=== PATIENT | male | born 1995 | race Caucasian/White ===

== ENCOUNTER 2018-03-05 17:24 | Emergency (ER) | payer OTHER ==
[2018-03-05] MEDS ORDERED: Ondansetron 4 MG/2 ML SDV IVPUSH ONE (17:30)
[2018-03-05] MEDS ORDERED: Sodium Chloride 0.9% 1,000 ML IV ONE (17:30)
[2018-03-05] MEDS ORDERED: HYDROmorphone 2 MG/ML SDV IVPUSH ONE (17:30)
[2018-03-05] MEDS ORDERED: Sodium Chloride 0.9% 10 ML Syringe FLUSH PRN (17:31)
[2018-03-05] MEDS ORDERED: Sodium Chloride 0.9% 2.5 ML Syringe FLUSH PRN (17:31)
--- NOTE | 2018-03-05 17:31 | EDM.PDOC ---
ED HPI GENERAL MEDICAL PROBLEM - General Chief Complaint: Lower Extremity Injury/Pain Stated Complaint: CRUSHED FOOT AT WORK Time Seen by Provider: 03/05/18 17:31 Source of Information: Reports: Patient History Limitations: Reports: No Limitations - History of Present Illness INITIAL COMMENTS - FREE TEXT/NARRATIVE: HISTORY AND PHYSICAL: []22 -year-old male presenting with crush injury to his left foot History of Present Illness: []Approximately half hour before presenting to the emergency department a 4 point lift for automobile was dropped down landing on his left foot. Review of Systems: As per history of present illness and below otherwise all systems reviewed and negative. Past medical history: As per history of present illness and as reviewed below otherwise noncontributory. Surgical history: As per history of present illness and as reviewed below otherwise noncontributory. Social history: No reported history of drug or alcohol abuse. Family history: As per history of present illness and as reviewed below otherwise noncontributory. Physical exam: Alert and oriented gentleman young man who is in extreme amount of pain in his left foot is quite edematous great toe and second toe HEENT: Atraumatic, normocehpalic, pupils reactive, negative for conjunctival pallor or scleral icterus, mucous membranes moist, throat clear, neck supple, nontender, trachea midline. Lungs: Clear to auscultation, breath sounds equal bilaterally, chest non tender. Heart: S1S2, regular, negative for clicks, rubs, or JVD. Abdomen: Soft, nondistended, nontender. Negative for masses or hepatossplenmegaly. Negative for costovertebral tenderness. Pelvis: Stable nontender. Genitourinary: Deferred. Rectal: Deferred Extremities: Atraumatic, negative for cords or calf pain. Neurovascular unremarkable. Neuro: Awake, alert, oriented. Cranial nerves II through XII unremarkable. Cerebellum unremarkable. Motor and sensory unremarkable throughout. Exam nonfocal. I discussed this case with Dr. Elder at [facility] [place], [place]. He has accepted him for transfer. Dr. Larios is reconciliation clerk for podiatry. Procedure was completed per Dr. Jackson to reduce the subluxation, of his great toe. white grayish color has improved the bluish color has resolved slight pinkness is present. Good pedal pulse is palpable inked marked has been placed. After this procedure with sedation the refill is poor. Diagnostics: []xray foot and toes left Therapeutics: []1 L normal saline 2 mg Dilaudid Zofran Impression: []Fractures dislocation IP joint first digit and multiple proximal phalanx fractures. Plan: []Transfer per ground ambulance to [facility] Definitive disposition and diagnosis as appropriate pending reevaluation and review of above. Onset: Today, Sudden Duration: Minutes: (30) Location: Reports: Lower Extremity, Left Quality: Reports: Stabbing, Throbbing Severity: Severe Improves with: Reports: None Worsens with: Reports: None Associated Symptoms: Reports: No Other Symptoms Left Feet Pain Score (Numeric/FACES): 10 - Related Data Allergies Allergy/AdvReac Type Severity Reaction Status Date / Time No Known Allergies Allergy Verified 03/05/18 17:33 Home Meds: Home Meds . [No Known Home Meds] 03/05/18 [History] Review of Systems - Review of Systems Review Of Systems: ROS reveals no pertinent complaints other than HPI. ED EXAM, GENERAL - Physical Exam Exam: See Below (see dictation) Course - Vital Signs Last Recorded V/S: Last Vital Signs Temp 37.1 C 03/05/18 17:33 Pulse 136 H 03/05/18 17:33 Resp 20 03/05/18 17:33 BP 183/83 H 03/05/18 17:33 Pulse Ox 98 03/05/18 17:33 - Orders/Labs/Meds Orders: Active Orders 24 hr Category Date Time Status Foot Comp Min 3V Lt [CR] Stat Exams 03/05/18 17:27 Taken CPK [CREATINE KINASE,CK] [CHEM] Stat Lab 03/05/18 17:30 Received Sodium Chloride 0.9% [Saline Flush] Med 03/05/18 17:31 Active 10 ml FLUSH ASDIRECTED PRN Sodium Chloride 0.9% [Saline Flush] Med 03/05/18 17:31 Active 2.5 ml FLUSH ASDIRECTED PRN Saline Lock Insert [OM.PC] Stat Oth 03/05/18 17:31 Ordered Medication Orders Sodium Chloride (Saline Flush) 10 ml FLUSH ASDIRECTED PRN PRN Reason: Keep Vein Open Sodium Chloride (Saline Flush) 2.5 ml FLUSH ASDIRECTED PRN PRN Reason: Keep Vein Open Labs: Laboratory Tests 03/05/18 03/05/18 Range/Units 17:30 17:30 WBC 10.73 (4.0-11.0) K/uL RBC 5.77 (4.50-5.90) M/uL Hgb 17.3 H (13.0-17.0) g/dL Hct 50.4 H (38.0-50.0) % MCV 87.3 (80.0-98.0) fL MCH 30.0 (27.0-32.0) pg MCHC 34.3 (31.0-37.0) g/dL RDW Std Deviation 43.0 (28.0-62.0) fl RDW Coeff of Trinity 14 (11.0-15.0) % Plt Count 252 (150-400) K/uL MPV 9.90 (7.40-12.00) fL Neut % (Auto) 67.0 (48.0-80.0) % Lymph % (Auto) 25.0 (16.0-40.0) % [place] % (Auto) 7.1 (0.0-15.0) % Eos % (Auto) 0.5 (0.0-7.0) % Baso % (Auto) 0.4 (0.0-1.5) % Neut # (Auto) 7.2 H (1.4-5.7) K/uL Lymph # (Auto) 2.7 H (0.6-2.4) K/uL [place] # (Auto) 0.8 (0.0-0.8) K/uL Eos # (Auto) 0.1 (0.0-0.7) K/uL Baso # (Auto) 0.0 (0.0-0.1) K/uL Nucleated RBC % 0.0 /100WBC Nucleated RBCs # 0 K/uL Sodium 141 (136-148) mmol/L Potassium 3.5 (3.5-5.1) mmol/L Chloride 102 (98-107) mmol/L Carbon Dioxide 27.2 (21.0-32.0) mmol/L BUN 11 (7.0-18.0) mg/dL Creatinine 1.1 (0.8-1.3) mg/dL Est Cr Clr Drug Dosing 99.32 mL/min Estimated GFR (MDRD) > 60.0 ml/min Glucose 93 (74-106) mg/dL Calcium 10.0 (8.5-10.1) mg/dL Total Bilirubin 0.6 (0.2-1.0) mg/dL AST 33 (15-37) IU/L ALT 35 (14-63) IU/L Alkaline Phosphatase 80 (46-116) U/L Total Protein 8.1 (6.4-8.2) g/dL Albumin 4.6 (3.4-5.0) g/dL Globulin 3.5 (2.0-3.5) g/dL Albumin/Globulin Ratio 1.3 (1.3-2.8) Meds: Medications Generic Name Dose Route Start Last Admin Trade Name Freq PRN Reason Stop Dose Admin Sodium Chloride 10 ml 03/05/18 17:31 Saline Flush FLUSH ASDIRECTED PRN Keep Vein Open Sodium Chloride 2.5 ml 03/05/18 17:31 Saline Flush FLUSH ASDIRECTED PRN Keep Vein Open Discontinued Medications Generic Name Dose Route Start Last Admin Trade Name Freq PRN Reason Stop Dose Admin Fentanyl Confirm 03/05/18 18:36 Sublimaze Administered 03/05/18 18:37 Dose 100 mcg .ROUTE .STK-MED ONE Hydromorphone HCl 2 mg 03/05/18 17:30 03/05/18 17:35 Dilaudid IVPUSH 03/05/18 17:31 2 mg ONETIME ONE Administration Hydromorphone HCl Confirm 03/05/18 17:34 03/05/18 18:04 Dilaudid Administered 03/05/18 17:35 Not Given Dose 2 mg .ROUTE .STK-MED ONE Hydromorphone HCl 1 mg 03/05/18 18:10 03/05/18 18:21 Dilaudid IVPUSH 03/05/18 18:11 1 mg ONETIME ONE Administration Sodium Chloride 1,000 mls @ 999 mls/hr 03/05/18 17:30 03/05/18 17:41 Normal Saline IV 03/05/18 18:30 999 mls/hr STAT ONE Administration Lidocaine HCl Confirm 03/05/18 18:36 Xylocaine-Mpf 1% Administered 03/05/18 18:37 Dose 5 mls @ as directed .ROUTE .STK-MED ONE Midazolam HCl Confirm 03/05/18 18:35 Versed 1 Mg/Ml Administered 03/05/18 18:36 Dose 2 mg .ROUTE .STK-MED ONE Ondansetron HCl 4 mg 03/05/18 17:30 03/05/18 17:35 Zofran IVPUSH 03/05/18 17:31 4 mg ONETIME ONE Administration Ondansetron HCl Confirm 03/05/18 17:34 03/05/18 18:04 Zofran Administered 03/05/18 17:35 Not Given Dose 4 mg .ROUTE .STK-MED ONE Propofol Confirm 03/05/18 18:36 Diprivan 20 Ml Administered 03/05/18 18:37 Dose 200 mg .ROUTE .STK-MED ONE Departure - Departure Time of Disposition: 18:57 Disposition: DC/Tfer to Acute Hospital 02 Condition: Fair Clinical Impression: Closed fracture of phalanx of foot - Discharge Information Referrals: PCP,None [Primary Care Provider] - Forms: ED Department Discharge - My Orders Last 24 Hours: My Active Orders 03/05/18 17:31 Sodium Chloride 0.9% [Saline Flush] 10 ml FLUSH ASDIRECTED PRN Sodium Chloride 0.9% [Saline Flush] 2.5 ml FLUSH ASDIRECTED PRN Saline Lock Insert [OM.PC] Stat - Assessment/Plan Last 24 Hours: My Active Orders 03/05/18 17:31 Sodium Chloride 0.9% [Saline Flush] 10 ml FLUSH ASDIRECTED PRN Sodium Chloride 0.9% [Saline Flush] 2.5 ml FLUSH ASDIRECTED PRN Saline Lock Insert [OM.PC] Stat
[2018-03-05] MEDS ORDERED: Ondansetron 4 MG/2 ML SDV ONE (17:34)
[2018-03-05] MEDS ORDERED: HYDROmorphone 2 MG/ML SDV ONE (17:34)
[2018-03-05] MEDS ORDERED: HYDROmorphone 1 MG/ML Syringe IVPUSH ONE (18:10)
[2018-03-05 18:14] LABS: CHLORIDE,CL 102 mmol/L (98-107); SODIUM,NA 141 mmol/L (136-148)
[2018-03-05] MEDS ORDERED: Midazolam 1 MG/ML 2 ML SDV ONE (18:35)
[2018-03-05] MEDS ORDERED: Propofol 200 MG/20 ML SDV ONE (18:36)
[2018-03-05] MEDS ORDERED: fentaNYL 100 MCG/2 ML SDV ONE (18:36)
--- NOTE | 2018-03-05 19:13 | PCM.PREANE ---
Preanesthetic Assessment - Anesthesia/Transfusion/Family Hx Anesthesia History: Prior Anesthesia Without Reaction Family History of Anesthesia Reaction: No Transfusion History: No Prior Transfusion(s) - Review of Systems General: No Symptoms Pulmonary: No Symptoms Cardiovascular: No Symptoms Gastrointestinal: No Symptoms Neurological: No Symptoms Other: Reports: None - Physical Assessment NPO Status Date: 03/05/18 NPO Status Time: 12:00 O2 Sat by Pulse Oximetry: 98 Respiratory Rate: 20 Vital Signs: Last Vital Signs Temp 98.8 F 03/05/18 17:33 Pulse 136 H 03/05/18 17:33 Resp 20 03/05/18 17:33 BP 183/83 H 03/05/18 17:33 Pulse Ox 98 03/05/18 17:33 Height: 5 ft 7 in Weight: 86.183 kg ASA Class: 2E Mental Status: Alert & Oriented x3 Airway Class: Mallampati = 2 Dentition: Reports: Normal Dentition Thyro-Mental Finger Breadths: 3 Mouth Opening Finger Breadths: 3 ROM/Head Extension: Full Lungs: Clear to Auscultation, Normal Respiratory Effort Cardiovascular: Regular Rate, Regular Rhythm - Lab Values: Laboratory Last Values WBC 10.73 K/uL (4.0-11.0) 03/05/18 17:30 RBC 5.77 M/uL (4.50-5.90) 03/05/18 17:30 Hgb 17.3 g/dL (13.0-17.0) H 03/05/18 17:30 Hct 50.4 % (38.0-50.0) H 03/05/18 17:30 MCV 87.3 fL (80.0-98.0) 03/05/18 17:30 MCH 30.0 pg (27.0-32.0) 03/05/18 17:30 MCHC 34.3 g/dL (31.0-37.0) 03/05/18 17:30 RDW Std Deviation 43.0 fl (28.0-62.0) 03/05/18 17:30 RDW Coeff of Trinity 14 % (11.0-15.0) 03/05/18 17:30 Plt Count 252 K/uL (150-400) 03/05/18 17:30 MPV 9.90 fL (7.40-12.00) 03/05/18 17:30 Neut % (Auto) 67.0 % (48.0-80.0) 03/05/18 17:30 Lymph % (Auto) 25.0 % (16.0-40.0) 03/05/18 17:30 [place] % (Auto) 7.1 % (0.0-15.0) 03/05/18 17:30 Eos % (Auto) 0.5 % (0.0-7.0) 03/05/18 17:30 Baso % (Auto) 0.4 % (0.0-1.5) 03/05/18 17:30 Neut # (Auto) 7.2 K/uL (1.4-5.7) H 03/05/18 17:30 Lymph # (Auto) 2.7 K/uL (0.6-2.4) H 03/05/18 17:30 [place] # (Auto) 0.8 K/uL (0.0-0.8) 03/05/18 17:30 Eos # (Auto) 0.1 K/uL (0.0-0.7) 03/05/18 17:30 Baso # (Auto) 0.0 K/uL (0.0-0.1) 03/05/18 17:30 Nucleated RBC % 0.0 /100WBC 03/05/18 17:30 Nucleated RBCs # 0 K/uL 03/05/18 17:30 Sodium 141 mmol/L (136-148) 03/05/18 17:30 Potassium 3.5 mmol/L (3.5-5.1) 03/05/18 17:30 Chloride 102 mmol/L (98-107) 03/05/18 17:30 Carbon Dioxide 27.2 mmol/L (21.0-32.0) 03/05/18 17:30 BUN 11 mg/dL (7.0-18.0) 03/05/18 17:30 Creatinine 1.1 mg/dL (0.8-1.3) 03/05/18 17:30 Est Cr Clr Drug Dosing 99.32 mL/min 03/05/18 17:30 Estimated GFR (MDRD) > 60.0 ml/min 03/05/18 17:30 Glucose 93 mg/dL (74-106) 03/05/18 17:30 Calcium 10.0 mg/dL (8.5-10.1) 03/05/18 17:30 Total Bilirubin 0.6 mg/dL (0.2-1.0) 03/05/18 17:30 AST 33 IU/L (15-37) 03/05/18 17:30 ALT 35 IU/L (14-63) 03/05/18 17:30 Alkaline Phosphatase 80 U/L (46-116) 03/05/18 17:30 Creatine Kinase 1065 U/L (26-308) H 03/05/18 17:30 Total Protein 8.1 g/dL (6.4-8.2) 03/05/18 17:30 Albumin 4.6 g/dL (3.4-5.0) 03/05/18 17:30 Globulin 3.5 g/dL (2.0-3.5) 03/05/18 17:30 Albumin/Globulin Ratio 1.3 (1.3-2.8) 03/05/18 17:30 - Allergies Allergies/Adverse Reactions: Allergies Allergy/AdvReac Type Severity Reaction Status Date / Time No Known Allergies Allergy Verified 03/05/18 17:33 - Acknowledgements Anesthesia Type Planned: MAC Pt an Appropriate Candidate for the Planned Anesthesia: Yes Alternatives and Risks of Anesthesia Discussed w Pt/Guardian: Yes Pt/Guardian Understands and Agrees with Anesthesia Plan: Yes PreAnesthesia Questionnaire - Past Health History Medical/Surgical History: Denies Medical/Surgical History HEENT History: Reports: None Cardiovascular History: Reports: None Respiratory History: Reports: None Gastrointestinal History: Reports: GERD (occ.) Genitourinary History: Reports: None Musculoskeletal History: Reports: None Neurological History: Reports: None Psychiatric History: Reports: Anxiety Endocrine/Metabolic History: Reports: Obesity/BMI 30+ Hematologic History: Reports: None Immunologic History: Reports: None Oncologic (Cancer) History: Reports: None Dermatologic History: Reports: None - Infectious Disease History Infectious Disease History: Reports: None - SUBSTANCE USE Smoking Status *Q: Never Smoker Recreational Drug Use History: Yes Recreational Drug Type: Reports: Marijuana/Hashish - HOME MEDS Home Medications: Home Meds . [No Known Home Meds] 03/05/18 [History] - CURRENT (IN HOUSE) MEDS Current Meds: Current Medications Sodium Chloride (Saline Flush) 10 ml FLUSH ASDIRECTED PRN PRN Reason: Keep Vein Open Sodium Chloride (Saline Flush) 2.5 ml FLUSH ASDIRECTED PRN PRN Reason: Keep Vein Open Discontinued Medications Fentanyl (Sublimaze) Confirm Administered Dose 100 mcg .ROUTE .STK-MED ONE Stop: 03/05/18 18:37 Hydromorphone HCl (Dilaudid) 2 mg IVPUSH ONETIME ONE Stop: 03/05/18 17:31 Last Admin: 03/05/18 17:35 Dose: 2 mg Hydromorphone HCl (Dilaudid) Confirm Administered Dose 2 mg .ROUTE .STK-MED ONE Stop: 03/05/18 17:35 Last Admin: 03/05/18 18:04 Dose: Not Given Hydromorphone HCl (Dilaudid) 1 mg IVPUSH ONETIME ONE Stop: 03/05/18 18:11 Last Admin: 03/05/18 18:21 Dose: 1 mg Sodium Chloride (Normal Saline) 1,000 mls @ 999 mls/hr IV STAT ONE Stop: 03/05/18 18:30 Last Admin: 03/05/18 17:41 Dose: 999 mls/hr Lidocaine HCl (Xylocaine-Mpf 1%) Confirm Administered Dose 5 mls @ as directed .ROUTE .STK-MED ONE Stop: 03/05/18 18:37 Midazolam HCl (Versed 1 Mg/Ml) Confirm Administered Dose 2 mg .ROUTE .STK-MED ONE Stop: 03/05/18 18:36 Ondansetron HCl (Zofran) 4 mg IVPUSH ONETIME ONE Stop: 03/05/18 17:31 Last Admin: 03/05/18 17:35 Dose: 4 mg Ondansetron HCl (Zofran) Confirm Administered Dose 4 mg .ROUTE .STK-MED ONE Stop: 03/05/18 17:35 Last Admin: 03/05/18 18:04 Dose: Not Given Propofol (Diprivan 20 Ml) Confirm Administered Dose 200 mg .ROUTE .STK-MED ONE Stop: 03/05/18 18:37
--- NOTE | 2018-03-05 19:14 | PCM.POSTAN ---
POST ANESTHESIA ASSESSMENT - MENTAL STATUS Mental Status: Alert, Oriented - RESPIRATORY Respiratory Status: Respiratory Rate WNL, Airway Patent, O2 Saturation Stable - CARDIOVASCULAR CV Status: Pulse Rate WNL, Blood Pressure Stable - GASTROINTESTINAL GI Status: No Symptoms - PAIN Pain Score: 5 - POST OP HYDRATION Hydration Status: Adequate & Stable - OBSERVATIONS Free Text/Narrative:: Patient is alert and oriented. EMS is at the bedside in the ER for transfer to [place].
--- NOTE | 2018-03-05 19:14 | PCM48HPAN ---
Post Anesthesia Note - EVALUATION WITHIN 48HRS OF ANESTHETIC Vital Signs in Normal Range: Yes Patient Participated in Evaluation: Yes Respiratory Function Stable: Yes Airway Patent: Yes Cardiovascular Function Stable: Yes Hydration Status Stable: Yes Pain Control Satisfactory: Yes Nausea and Vomiting Control Satisfactory: Yes Mental Status Recovered: Yes Resp Rate: 20
--- NOTE | 2018-03-06 10:42 | CR ---
EXAM DATE: 03/05/18 PATIENT'S AGE: 22 Patient: NIEVES CUNNINGHAM Facility: [place], [place] Site . Site : [id number] Study: XRay Extremity Left [id number]/12/2018 5:56:34 PM Ordering Physician: Doctor Hsieh Final Report: INDICATION: Crush injury. TECHNIQUE: Three views. FINDINGS: Fracture/dislocation at the IP joint of the 1st digit with distal phalanx appearing to be dislocated in the dorsal direction relative to the proximal phalanx. Subluxation at the 2nd IP joint with tiny avulsion fracture of the proximal phalanx. Transverse fracture at the distal 3rd and 4th proximal phalanges. Associated soft tissue swelling. No definitive forefoot dislocation, but CT of the foot recommended if this is a concern clinically. IMPRESSION: Multiple phalanges fractures with associated soft tissue swelling with subluxations at the 1st and 2nd PIP joints. Dictated by Clark Tran MD @ Mar 05 2018 6:08PM (Electronic Signature) Report Signed by Proxy. JOANA
== END 2018-03-05 19:05 ==
LOC: MW.ED 17:24
DX: S92.422A Displaced fracture of distal phalanx of left great toe, initial encounter for closed fracture (principal); S92.512A Displaced fracture of proximal phalanx of left lesser toe(s), initial encounter for closed fracture; W20.8XXA Other cause of strike by thrown, projected or falling object, initial encounter
CPT/HCPCS: 28495; 28515; 73630; 80053; 82550; 85025; 96361; 96374; 96375; 96376; 99152; 99153; 99285; J1170; J2405; J7040

== ENCOUNTER 2018-03-24 15:10 | Emergency (ER) | payer OTHER ==
[2018-03-24] MEDS ORDERED: Sodium Chloride 0.9% 10 ML Syringe FLUSH PRN (15:43)
[2018-03-24] MEDS ORDERED: Sodium Chloride 0.9% 1,000 ML IV ONE (15:43)
[2018-03-24] MEDS ORDERED: Ondansetron 4 MG/2 ML SDV IVPUSH ONE (15:43)
[2018-03-24] MEDS ORDERED: Ketorolac 30 MG/ML SDV IVPUSH ONE (15:43)
[2018-03-24] MEDS ORDERED: Sodium Chloride 0.9% 2.5 ML Syringe FLUSH PRN (15:43)
--- NOTE | 2018-03-24 15:50 | EDM.PDOC ---
ED HPI GENERAL MEDICAL PROBLEM - General Chief Complaint: Abdominal Pain Stated Complaint: VOMITING Time Seen by Provider: 03/24/18 15:22 Source of Information: Reports: Patient History Limitations: Reports: No Limitations - History of Present Illness INITIAL COMMENTS - FREE TEXT/NARRATIVE: History of present illness: []Patient complains of not feeling well. He hasn't eaten much in the last 5 days and has felt hot and nauseous since last night. Patient suffered a crush injury to his left foot and was hospitalized after surgery [facility] [place]. He has not taken any narcotics or Ativan in the past 3 days. He has been taking ibuprofen and Tylenol Review of systems: As per history of present illness and below otherwise all systems reviewed and negative. Past medical history: As per history of present illness and as reviewed below otherwise noncontributory. Surgical history: As per history of present illness and as reviewed below otherwise noncontributory. Social history: No reported history of drug or alcohol abuse. Family history: As per history of present illness and as reviewed below otherwise noncontributory. Physical exam: General: Well developed, well nourished in NAD HEENT: Atraumatic, normocephalic, pupils reactive, negative for conjunctival pallor or scleral icterus, mucous membranes moist, throat clear, neck supple, nontender, trachea midline. Lungs: Clear to auscultation, breath sounds equal bilaterally, chest nontender. Heart: S1S2, regular, negative for clicks, rubs, or JVD. Abdomen: Soft, nondistended, nontender, no rebound or guarding. Negative for masses or hepatosplenomegaly. Negative for costovertebral tenderness. Pelvis: Stable nontender. Genitourinary: Deferred. Rectal: Deferred. Extremities: Left foot mild swelling, pain in the great toe noted in place, patient is able to move his great toe slightly dorsalis pedis pulses palpable and sensation is intact throughout his foot. negative for cords or calf pain. Neurovascular unremarkable. Neuro: Awake, alert, oriented. Cranial nerves II through XII unremarkable. Cerebellum unremarkable. Motor and sensory unremarkable throughout. Exam nonfocal. Skin:warm and dry Diagnostics: CBC, chemistry all normal Therapeutics: IV hydration, Zofran, Toradol ED Course: Unremarkable Impression: Dehydration Prescriptions: None Plan: Increase fluids Tylenol Motrin for pain follow-up with your orthopedic surgeon, return if symptoms worsen or change Definitive disposition and diagnosis as appropriate pending reevaluation and review of above. Left Upper Abdomen Pain Score (Numeric/FACES): 2 - Related Data Allergies Allergy/AdvReac Type Severity Reaction Status Date / Time No Known Allergies Allergy Verified 03/24/18 15:36 Home Meds: Home Meds . [No Known Home Meds] 03/05/18 [History] Past Medical History - Past Health History Medical/Surgical History: Denies Medical/Surgical History HEENT History: Reports: None Cardiovascular History: Reports: None Respiratory History: Reports: None Gastrointestinal History: Reports: GERD Genitourinary History: Reports: None Musculoskeletal History: Reports: Other (See Below) Neurological History: Reports: None Psychiatric History: Reports: Anxiety Endocrine/Metabolic History: Reports: Obesity/BMI 30+ Hematologic History: Reports: None Immunologic History: Reports: None Oncologic (Cancer) History: Reports: None Dermatologic History: Reports: None - Infectious Disease History Infectious Disease History: Reports: None - Past Surgical History Other Musculoskeletal Surgeries/Procedures:: left foot crush injury surgery in [place] last week by Social & Family History - Family History Family Medical History: Noncontributory - Tobacco Use Smoking Status *Q: Never Smoker Second Hand Smoke Exposure: No - Caffeine Use Caffeine Use: Reports: None - Recreational Drug Use Recreational Drug Use: No ED ROS GENERAL - Review of Systems Review Of Systems: ROS reveals no pertinent complaints other than HPI. ED EXAM, GENERAL - Physical Exam Exam: See Below (See history of present illness) Course - Vital Signs Last Recorded V/S: Last Vital Signs Temp 96.8 F 03/24/18 15:34 Pulse Resp 20 03/24/18 15:34 BP 139/77 03/24/18 15:34 Pulse Ox 99 03/24/18 15:34 - Orders/Labs/Meds Orders: Active Orders 24 hr Category Date Time Status Sodium Chloride 0.9% [Saline Flush] Med 03/24/18 15:43 Active 10 ml FLUSH ASDIRECTED PRN Sodium Chloride 0.9% [Saline Flush] Med 03/24/18 15:43 Active 2.5 ml FLUSH ASDIRECTED PRN Saline Lock Insert [OM.PC] Stat Oth 03/24/18 15:43 Ordered Medication Orders Sodium Chloride (Saline Flush) 10 ml FLUSH ASDIRECTED PRN PRN Reason: Keep Vein Open Last Admin: 03/24/18 16:08 Dose: 10 ml Sodium Chloride (Saline Flush) 2.5 ml FLUSH ASDIRECTED PRN PRN Reason: Keep Vein Open Last Admin: 03/24/18 16:08 Dose: 2.5 ml Labs: Laboratory Tests 03/24/18 03/24/18 03/24/18 Range/Units 15:49 15:49 15:49 WBC 11.49 H (4.0-11.0) K/uL RBC 5.45 (4.50-5.90) M/uL Hgb 16.4 (13.0-17.0) g/dL Hct 47.1 (38.0-50.0) % MCV 86.4 (80.0-98.0) fL MCH 30.1 (27.0-32.0) pg MCHC 34.8 (31.0-37.0) g/dL RDW Std Deviation 40.9 (28.0-62.0) fl RDW Coeff of Trinity 13 (11.0-15.0) % Plt Count 292 (150-400) K/uL MPV 9.80 (7.40-12.00) fL Neut % (Auto) 78.6 (48.0-80.0) % Lymph % (Auto) 14.2 L (16.0-40.0) % Caswell % (Auto) 6.7 (0.0-15.0) % Eos % (Auto) 0.2 (0.0-7.0) % Baso % (Auto) 0.3 (0.0-1.5) % Neut # (Auto) 9.0 H (1.4-5.7) K/uL Lymph # (Auto) 1.6 (0.6-2.4) K/uL Caswell # (Auto) 0.8 (0.0-0.8) K/uL Eos # (Auto) 0.0 (0.0-0.7) K/uL Baso # (Auto) 0.0 (0.0-0.1) K/uL Nucleated RBC % 0.0 /100WBC Nucleated RBCs # 0 K/uL Sodium 140 (136-148) mmol/L Potassium 3.5 (3.5-5.1) mmol/L Chloride 104 (98-107) mmol/L Carbon Dioxide 25.9 (21.0-32.0) mmol/L BUN 7 (7.0-18.0) mg/dL Creatinine 0.9 (0.8-1.3) mg/dL Est Cr Clr Drug Dosing 121.39 mL/min Estimated GFR (MDRD) > 60.0 ml/min Glucose 92 (74-106) mg/dL Calcium 9.7 (8.5-10.1) mg/dL Total Bilirubin 0.6 (0.2-1.0) mg/dL AST 13 L (15-37) IU/L ALT 31 (14-63) IU/L Alkaline Phosphatase 86 (46-116) U/L Total Protein 7.6 (6.4-8.2) g/dL Albumin 4.2 (3.4-5.0) g/dL Globulin 3.4 (2.0-3.5) g/dL Albumin/Globulin Ratio 1.2 L (1.3-2.8) Lipase 132 (73-393) U/L Meds: Medications Generic Name Dose Route Start Last Admin Trade Name Freq PRN Reason Stop Dose Admin Sodium Chloride 10 ml 03/24/18 15:43 03/24/18 16:08 Saline Flush FLUSH 10 ml ASDIRECTED PRN Administration Keep Vein Open Sodium Chloride 2.5 ml 03/24/18 15:43 03/24/18 16:08 Saline Flush FLUSH 2.5 ml ASDIRECTED PRN Administration Keep Vein Open Discontinued Medications Generic Name Dose Route Start Last Admin Trade Name Freq PRN Reason Stop Dose Admin Sodium Chloride 1,000 mls @ 999 mls/hr 03/24/18 15:43 03/24/18 16:07 Normal Saline IV 03/24/18 16:43 999 mls/hr .Bolus ONE Administration Ketorolac Tromethamine 30 mg 03/24/18 15:43 03/24/18 16:08 Toradol IVPUSH 03/24/18 15:44 30 mg ONETIME ONE Administration Ondansetron HCl 4 mg 03/24/18 15:43 03/24/18 16:08 Zofran IVPUSH 03/24/18 15:44 4 mg ONETIME ONE Administration Departure - Departure Time of Disposition: 17:29 Disposition: Home, Self-Care 01 Condition: Good Clinical Impression: Dehydration syndrome, Visit for wound check - Discharge Information *PRESCRIPTION DRUG MONITORING PROGRAM REVIEWED*: No *COPY OF PRESCRIPTION DRUG MONITORING REPORT IN PATIENT STEFAN: No Referrals: PCP,None [Primary Care Provider] - Forms: ED Department Discharge Additional Instructions: The following information is given to patients seen in the emergency department who are being discharged to home. This information is to outline your options for follow-up care. We provide all patients seen in our emergency department with a follow-up referral. The need for follow-up, as well as the timing and circumstances, are variable depending upon the specifics of your emergency department visit. If you don't have a primary care physician on staff, we will provide you with a referral. We always advise you to contact your personal physician following an emergency department visit to inform them of the circumstance of the visit and for follow-up with them and/or the need for any referrals to a consulting specialist. The emergency department will also refer you to a specialist when appropriate. This referral assures that you have the opportunity for follow-up care with a specialist. All of these measure are taken in an effort to provide you with optimal care, which includes your follow-up. Under all circumstances we always encourage you to contact your private physician who remains a resource for coordinating your care. When calling for follow-up care, please make the office aware that this follow-up is from your recent emergency room visit. If for any reason you are refused follow-up, please contact the [facility] Emergency Department at and asked to speak to the emergency department charge nurse. Tylenol Motrin for pain follow-up with primary care or your orthopedic surgeon return if symptoms worsen or change. [facility] Primary Care [address] [place] [id number] - My Orders Last 24 Hours: My Active Orders 03/24/18 15:43 Sodium Chloride 0.9% [Saline Flush] 10 ml FLUSH ASDIRECTED PRN Sodium Chloride 0.9% [Saline Flush] 2.5 ml FLUSH ASDIRECTED PRN Saline Lock Insert [OM.PC] Stat - Assessment/Plan Last 24 Hours: My Active Orders 03/24/18 15:43 Sodium Chloride 0.9% [Saline Flush] 10 ml FLUSH ASDIRECTED PRN Sodium Chloride 0.9% [Saline Flush] 2.5 ml FLUSH ASDIRECTED PRN Saline Lock Insert [OM.PC] Stat
[2018-03-24 16:23] LABS: CHLORIDE,CL 104 mmol/L (98-107); SODIUM,NA 140 mmol/L (136-148)
== END 2018-03-24 17:55 | disposition home or self-care (01) ==
LOC: MW.ED 15:10
DX: E86.0 Dehydration (principal); S97.81XD Crushing injury of right foot, subsequent encounter; W23.1XXD Caught, crushed, jammed, or pinched between stationary objects, subsequent encounter; F41.9 Anxiety disorder, unspecified
CPT/HCPCS: 36415; 80053; 83690; 85025; J1885; J2405; J7040; 99283

== ENCOUNTER 2018-10-04 15:27 | Emergency (ER) | payer SELFPAY | END 2018-10-04 17:14 | disposition left against medical advice (07) | LOC: MW.ED 15:27 | DX: Z53.21 Procedure and treatment not carried out due to patient leaving prior to being seen by health care provider (principal) | CPT/HCPCS: 99282 ==

== ENCOUNTER 2019-11-04 10:19 | Emergency (ER) | payer OTHER ==
--- NOTE | 2019-11-04 10:37 | EDM.PDOC ---
ED HPI GENERAL MEDICAL PROBLEM - General Chief Complaint: Respiratory Problem Stated Complaint: SOB/COUGHING/ INJURY TO RT ANKLE Time Seen by Provider: 11/04/19 10:34 Source of Information: Reports: Patient History Limitations: Reports: No Limitations - History of Present Illness INITIAL COMMENTS - FREE TEXT/NARRATIVE: HISTORY AND PHYSICAL: History of present illness: Patient is a 24-year-old male presents to the ED with complaint of cough and shortness of breath. Patient reports history of asthma but has not used an inhaler in years. He states he has a cough x 2 weeks that has gotten worse and today more short of breath. He denies fevers or chills. Denies sick contacts, travelled to [place] over 1 month ago. Patient also states he rolled his ankle on his way to the ED this morning. He has been able to bear weight on it but with some discomfort. He also states his male partner has had some white penile discharge and dysuria. States he is not having any STD symptoms but would like to be checked. Review of systems: As per history of present illness and below otherwise all systems reviewed and negative. Past medical history: As per history of present illness and as reviewed below otherwise noncontributory. Surgical history: As per history of present illness and as reviewed below otherwise noncontributory. Social history: No reported history of drug or alcohol abuse. Family history: As per history of present illness and as reviewed below otherwise noncontributory. Physical exam: General: Patient sitting comfortably in no acute distress and nontoxic appearing HEENT: Atraumatic, normocephalic, pupils reactive, negative for conjunctival pallor or scleral icterus, mucous membranes moist, throat clear, neck supple, nontender, trachea midline. No meningeal signs. Lungs: Clear to auscultation, breath sounds equal bilaterally, chest nontender. Heart: S1S2, regular, negative for clicks, rubs, or overt murmur. Abdomen: Soft, nondistended, nontender. Negative for masses or hepatosplenomegaly. Negative for costovertebral tenderness. No rigidity, rebound , guarding. Pelvis: Stable nontender. Genitourinary: Deferred. Rectal: Deferred. Extremities: Right lateral malleolus is swollen and tender to palpation. No proximal tib/fib tenderness to palpation. negative for cords or calf pain. Neurovascular unremarkable. Neuro: Awake, alert, oriented. Cranial nerves II through XII unremarkable. Cerebellum unremarkable. Motor and sensory unremarkable throughout. Exam nonfocal. Notes: Diagnostics: urine gc/chlamydia, CXR, right ankle, COVID-19 Therapeutics: 250mg Rocephin IM 1g Azithromycin PO 30mg Toradol IM CAM boot given for patient right ankle sprain Prescriptions: Diclofenac Ventolin inhaler Impression: STD concern, Right ankle injury, asthma exacerbation Plan: Use inhaler every 4-6 hours as needed for cough and shortness of breath You may take diclofenac twice daily with food for right ankle pain. Ice, elevate , and tylenol as needed. No sexual intercourse until results of your gonorrhea and chlamydia return. You will receive a call in 48 hours if positive, if negative you will not hear from us. Follow up with primary care provider Return to ED as needed as discussed Definitive disposition and diagnosis as appropriate pending reevaluation and review of above. right ankle Pain Score (Numeric/FACES): 5 - Related Data Allergies Allergy/AdvReac Type Severity Reaction Status Date / Time No Known Allergies Allergy Verified 11/04/19 10:32 Home Meds: Home Meds Albuterol [Ventolin HFA] 1 puff INH Q4H #1 inhaler 11/04/19 [Rx] Diclofenac Sodium [Voltaren] 75 mg PO BIDMEALS #20 tab.cr 11/04/19 [Rx] Past Medical History - Past Health History Medical/Surgical History: Denies Medical/Surgical History HEENT History: Reports: None Cardiovascular History: Reports: None Respiratory History: Reports: None Gastrointestinal History: Reports: GERD Genitourinary History: Reports: None Musculoskeletal History: Reports: Other (See Below) Neurological History: Reports: None Psychiatric History: Reports: Anxiety Endocrine/Metabolic History: Reports: Obesity/BMI 30+ Hematologic History: Reports: None Immunologic History: Reports: None Oncologic (Cancer) History: Reports: None Dermatologic History: Reports: None - Infectious Disease History Infectious Disease History: Reports: None - Past Surgical History Other Musculoskeletal Surgeries/Procedures:: left foot crush injury surgery in [place] last week by Social & Family History - Family History Family Medical History: Noncontributory - Caffeine Use Caffeine Use: Reports: None ED ROS GENERAL - Review of Systems Review Of Systems: Comprehensive ROS is negative, except as noted in HPI. ED EXAM, GENERAL - Physical Exam Exam: See Below (see dictation) Course - Vital Signs Last Recorded V/S: Last Vital Signs Temp 97.6 F 11/04/19 10:30 Pulse 109 H 11/04/19 10:51 Resp 18 11/04/19 10:30 BP 136/83 11/04/19 10:30 Pulse Ox 96 11/04/19 10:30 - Orders/Labs/Meds Orders: Active Orders 24 hr Category Date Time Status RT Aerosol Therapy [RC] ASDIRECTED Care 11/04/19 12:10 Ordered CHLAMYDIA AND GONORRHEA BY [facility]MA Stat Lab 11/04/19 10:35 Received Labs: Laboratory Tests 11/04/19 Range/Units 11:28 SARS-CoV-2 RNA (RT-PCR) NEGATIVE (NEGATIVE) Meds: Medications Discontinued Medications Generic Name Dose Route Start Last Admin Trade Name Freq PRN Reason Stop Dose Admin Albuterol/Ipratropium 3 ml 11/04/19 12:10 11/04/19 12:24 Duoneb 3.0-0.5 Mg/3 Ml NEB 11/04/19 12:11 3 ml ONETIME ONE Administration Azithromycin 1,000 mg 11/04/19 11:34 11/04/19 12:24 Zithromax PO 11/04/19 11:35 1,000 mg NOW STA Administration Ceftriaxone Sodium 250 mg/ 1 mls @ 1 mls/sec 11/04/19 11:34 11/04/19 12:23 Lidocaine HCl IM 11/04/19 11:35 1 mls/sec ONETIME ONE Administration Ketorolac Tromethamine 30 mg 11/04/19 12:10 11/04/19 12:22 Toradol IM 11/04/19 12:11 30 mg ONETIME ONE Administration Departure - Departure Time of Disposition: 12:42 Disposition: Home, Self-Care 01 Condition: Good Clinical Impression: Concern about STD in male without diagnosis, Asthma, Right ankle injury - Discharge Information Referrals: PCP,None [Primary Care Provider] - Forms: ED Department Discharge Additional Instructions: The following information is given to patients seen in the emergency department who are being discharged to home. This information is to outline your options for follow-up care. We provide all patients seen in our emergency department with a follow-up referral. The need for follow-up, as well as the timing and circumstances, are variable depending upon the specifics of your emergency department visit. If you don't have a primary care physician on staff, we will provide you with a referral. We always advise you to contact your personal physician following an emergency department visit to inform them of the circumstance of the visit and for follow-up with them and/or the need for any referrals to a consulting specialist. The emergency department will also refer you to a specialist when appropriate. This referral assures that you have the opportunity for follow-up care with a specialist. All of these measure are taken in an effort to provide you with optimal care, which includes your follow-up. Under all circumstances we always encourage you to contact your private physician who remains a resource for coordinating your care. When calling for follow-up care, please make the office aware that this follow-up is from your recent emergency room visit. If for any reason you are refused follow-up, please contact the [facility] Emergency Department at and asked to speak to the emergency department charge nurse. [facility] Primary Care [address] [place] [address] [place] [address] Use inhaler every 4-6 hours as needed for cough and shortness of breath You may take diclofenac twice daily with food for right ankle pain. Ice, elevate , and tylenol as needed. No sexual intercourse until results of your gonorrhea and chlamydia return. You will receive a call in 48 hours if positive, if negative you will not hear from us. Follow up with primary care provider Return to ED as needed as discussed Sepsis Event Note - Evaluation Sepsis Screening Result: No Definite Risk - Focused Exam Vital Signs: Vital Signs Temp Pulse Resp BP Pulse Ox 11/04/19 10:51 109 H 11/04/19 10:30 97.6 F 125 H 18 136/83 96 Date Exam was Performed: 11/04/19 Time Exam was Performed: 12:39 - My Orders Last 24 Hours: My Active Orders 11/04/19 10:35 CHLAMYDIA AND GONORRHEA BY [facility] Stat 11/04/19 12:10 RT Aerosol Therapy [RC] ASDIRECTED - Assessment/Plan Last 24 Hours: My Active Orders 11/04/19 10:35 CHLAMYDIA AND GONORRHEA BY [facility] Stat 11/04/19 12:10 RT Aerosol Therapy [RC] ASDIRECTED
[2019-11-04] MEDS ORDERED: Azithromycin 250 MG Tab PO STA (11:34)
--- NOTE | 2019-11-04 12:01 | CR ---
Right ankle: 3 views of the right ankle were obtained. Comparison: No prior ankle study. Ankle mortise is symmetric. No fracture, dislocation or other bony abnormality is appreciated. Impression: 1. No abnormality is appreciated on right ankle exam. Diagnostic code #1 This report was dictated in MDT
--- NOTE | 2019-11-04 12:01 | CR ---
Chest: Portable view of the chest was obtained. Comparison: No prior chest imaging. Heart size and mediastinum are normal. Lungs are clear with no acute parenchymal change. Mild scoliosis is noted within the spine. Impression: 1. Scoliosis. 2. Nothing acute is appreciated. Diagnostic code #2 This report was dictated in MDT
[2019-11-04] MEDS ORDERED: Albuterol/Ipratropium 3.0-0.5 MG/3 ML Neb Soln NEB ONE (12:10)
[2019-11-04] MEDS ORDERED: Ketorolac 30 MG/ML SDV IM ONE (12:10)
[2019-11-04] MEDS: cefTRIAXone 250 MG in Lidocaine 1% 1 ML IM ONE ×2 (12:11→12:23)
[2019-11-05 14:07] LABS: C.TRACHOMATIS BY TMA Negative (Negative); N.GONORRHOEAE BY TMA Negative (Negative)
== END 2019-11-04 13:04 | disposition home or self-care (01) ==
LOC: MW.ED 10:19
DX: J45.901 Unspecified asthma with (acute) exacerbation (principal); S99.911A Unspecified injury of right ankle, initial encounter; E66.9 Obesity, unspecified; Z68.27 Body mass index [BMI] 27.0-27.9, adult; Z20.828 Contact with and (suspected) exposure to other viral communicable diseases; Z11.3 Encounter for screening for infections with a predominantly sexual mode of transmission; X50.1XXA Overexertion from prolonged static or awkward postures, initial encounter
CPT/HCPCS: 71045; 73610; 87491; 87591; 87635; 94640; 96372; 99285; A9270; J0696; J1885; J2001; 99283; J7620-GY; U0002

== ENCOUNTER 2020-01-04 14:37 | Emergency (ER) | payer OTHER ==
[2020-01-04] MEDS ORDERED: Ondansetron 4 MG/2 ML SDV IVPUSH ONE (14:56)
[2020-01-04] MEDS ORDERED: Morphine 4 MG/ML Syringe IVPUSH ONE (14:56)
[2020-01-04] MEDS ORDERED: Sodium Chloride 0.9% 2.5 ML Syringe FLUSH PRN (14:56)
[2020-01-04] MEDS ORDERED: Sodium Chloride 0.9% 10 ML Syringe FLUSH PRN (14:56)
--- NOTE | 2020-01-04 15:19 | EDM.PDOC ---
ED HPI GENERAL MEDICAL PROBLEM - General Chief Complaint: General Stated Complaint: SIDE/BACK PAIN Time Seen by Provider: 01/04/20 14:39 - History of Present Illness INITIAL COMMENTS - FREE TEXT/NARRATIVE: 24-year-old male presenting with acute right shoulder and chest wall pain. Patient reports the symptoms started yesterday and have gradually worsened. He describes severe pain underneath his right scapula and wrapping around the right lateral chest wall. This worsens with deep breaths it worsens with range of motion of the right shoulder. It worsens with movement in general. It is not associated with cough or fever he denies shortness of breath he denies other chest pain exertional or otherwise. He denies any pain in his neck he denies any trauma to the chest or the shoulder. He denies similar symptoms in the past he does state that he has asthma and he takes albuterol occasionally for that. No fevers no chills no cough. Back Pain Score (Numeric/FACES): 8 - Related Data Allergies Allergy/AdvReac Type Severity Reaction Status Date / Time No Known Allergies Allergy Verified 01/04/20 14:53 Home Meds: Home Meds Albuterol [Ventolin HFA] 1 puff INH Q4H #1 inhaler 11/04/19 [Rx] Past Medical History - Past Health History Medical/Surgical History: Denies Medical/Surgical History HEENT History: Reports: None Cardiovascular History: Reports: None Respiratory History: Reports: Asthma Gastrointestinal History: Reports: GERD Genitourinary History: Reports: None Musculoskeletal History: Reports: Other (See Below) Neurological History: Reports: None Psychiatric History: Reports: Anxiety Endocrine/Metabolic History: Reports: Obesity/BMI 30+ Hematologic History: Reports: None Immunologic History: Reports: None Oncologic (Cancer) History: Reports: None Dermatologic History: Reports: None - Infectious Disease History Infectious Disease History: Reports: None - Past Surgical History Head Surgeries/Procedures: Reports: None Other Musculoskeletal Surgeries/Procedures:: left foot crush injury surgery in [place] by Social & Family History - Family History Family Medical History: Noncontributory - Tobacco Use Smoking Status *Q: Never Smoker - Caffeine Use Caffeine Use: Reports: None - Recreational Drug Use Recreational Drug Use: No ED ROS GENERAL - Review of Systems Review Of Systems: See Below Free Text/Narrative/Comment: General: No fever. Skin: No rash. Eyes: No vision problems. ENT: No sore throat. Neck: No neck stiffness. Respiratory: Per HPI Cardiac: Per HPI. Gastrointestinal: No nausea, vomiting or abdominal pain. Urinary: No dysuria. Musculoskeletal: Per HPI Neurologic: No headache. ED EXAM, GENERAL - Physical Exam Exam: See Below Free Text/Narrative:: General Appearance: No acute distress, appears comfortable Skin: No rash HEENT: Normocephalic/atraumatic, sclera anicteric, mucous membranes moist Neck: Normal range of motion Chest and Lungs: Bilateral breath sounds, clear to auscultation, no chest wall tenderness no chest wall contusion no underlying crepitus or deformity Cardiovascular: Regular rate and rhythm, no murmur Abdomen: Soft, non-tender Back: Normal Musculoskeletal: Patient leads to the right to guard his right chest. Patient has no focal tenderness swelling or deformity in the right ankle the right elbow of the right shoulder. He has no discomfort with internal or external rotation of the shoulder he has no discomfort with shoulder abduction or abduction until you get beyond 30 degrees of abduction and start to manipulate the shoulder blade. He does have significant pain and spasm with this. The right upper extremity is neurovascularly intact Neurologic: Awake, alert, no obvious deficits, moving all extremities Psychiatric: Appropriate, cooperative EKG INTERPRETATION EKG Interpretation Comments: Obtained at 1513 demonstrates normal sinus rhythm ventricular rate of [address] elevations consistent with benign early repolarization no findings of acute ischemia normal intervals Course - Vital Signs Last Recorded V/S: Last Vital Signs Temp 97.3 F 01/04/20 14:54 Pulse 97 01/04/20 14:54 Resp 18 01/04/20 14:54 BP 115/71 01/04/20 14:54 Pulse Ox 96 01/04/20 14:54 - Orders/Labs/Meds Orders: Active Orders 24 hr Category Date Time Status Cardiac Monitoring [RC] . DIRECTED Care 01/04/20 14:56 Active EKG 12 Lead [EKG Documentation Completion] [RC] STAT Care 01/04/20 14:58 Active Pulse Oximetry [RC] ASDIRECTED Care 01/04/20 14:56 Active Sodium Chloride 0.9% [Saline Flush] Med 01/04/20 14:56 Active 10 ml FLUSH ASDIRECTED PRN Sodium Chloride 0.9% [Saline Flush] Med 01/04/20 14:56 Active 2.5 ml FLUSH ASDIRECTED PRN Saline Lock Insert [OM.PC] Stat Oth 01/04/20 14:56 Ordered Medication Orders Sodium Chloride (Saline Flush) 10 ml FLUSH ASDIRECTED PRN PRN Reason: Keep Vein Open Last Admin: 01/04/20 15:29 Dose: 10 ml Documented by: [id number] Sodium Chloride (Saline Flush) 2.5 ml FLUSH ASDIRECTED PRN PRN Reason: Keep Vein Open Last Admin: 01/04/20 15:29 Dose: 2.5 ml Documented by: [id number] Labs: Laboratory Tests 01/04/20 01/04/20 01/04/20 Range/Units 15:25 15:25 15:25 WBC 9.43 (4.0-11.0) K/uL RBC 5.57 (4.50-5.90) M/uL Hgb 16.4 (13.0-17.0) g/dL Hct 49.4 (38.0-50.0) % MCV 88.7 (80.0-98.0) fL MCH 29.4 (27.0-32.0) pg MCHC 33.2 (31.0-37.0) g/dL RDW Std Deviation 43.3 (28.0-62.0) fl RDW Coeff of Trinity 13 (11.0-15.0) % Plt Count 211 (150-400) K/uL MPV 10.00 (7.40-12.00) fL Neut % (Auto) 73.8 (48.0-80.0) % Lymph % (Auto) 20.9 (16.0-40.0) % [place] % (Auto) 5.1 (0.0-15.0) % Eos % (Auto) 0.0 (0.0-7.0) % Baso % (Auto) 0.2 (0.0-1.5) % Neut # (Auto) 7.0 H (1.4-5.7) K/uL Lymph # (Auto) 2.0 (0.6-2.4) K/uL [place] # (Auto) 0.5 (0.0-0.8) K/uL Eos # (Auto) 0.0 (0.0-0.7) K/uL Baso # (Auto) 0.0 (0.0-0.1) K/uL Nucleated RBC % 0.0 /100WBC Nucleated RBCs # 0 K/uL D-Dimer, Quantitative < 0.19 (0.0-0.50) mg/L FEU Sodium 143 (136-148) mmol/L Potassium 3.8 (3.5-5.1) mmol/L Chloride 103 (98-107) mmol/L Carbon Dioxide 28.0 (21.0-32.0) mmol/L BUN 10 (7.0-18.0) mg/dL Creatinine 1.0 (0.8-1.3) mg/dL Est Cr Clr Drug Dosing 107.41 mL/min Estimated GFR (MDRD) > 60.0 ml/min Glucose 94 (74-106) mg/dL Calcium 9.8 (8.5-10.1) mg/dL Total Bilirubin 0.6 (0.2-1.0) mg/dL AST 19 (15-37) IU/L ALT 24 (14-63) IU/L Alkaline Phosphatase 78 (46-116) U/L Troponin I < 0.050 (0.000-0.056) ng/mL Total Protein 7.7 (6.4-8.2) g/dL Albumin 4.9 (3.4-5.0) g/dL Globulin 2.8 (2.6-4.0) g/dL Albumin/Globulin Ratio 1.8 H (0.9-1.6) Meds: Medications Generic Name Dose Route Start Last Admin Trade Name Kevyn PRN Reason Stop Dose Admin Sodium Chloride 10 ml 01/04/20 14:56 01/04/20 15:29 Saline Flush FLUSH 10 ml ASDIRECTED PRN Administration Keep Vein Open Sodium Chloride 2.5 ml 01/04/20 14:56 01/04/20 15:29 Saline Flush FLUSH 2.5 ml ASDIRECTED PRN Administration Keep Vein Open Discontinued Medications Generic Name Dose Route Start Last Admin Trade Name Freq PRN Reason Stop Dose Admin Diazepam 5 mg 01/04/20 16:30 01/04/20 17:08 Valium IVPUSH 01/04/20 16:31 5 mg ONETIME ONE Administration Ketorolac Tromethamine 30 mg 01/04/20 15:51 01/04/20 16:08 Toradol IVPUSH 01/04/20 15:52 30 mg ONETIME ONE Administration Morphine Sulfate 4 mg 01/04/20 14:56 01/04/20 15:29 Morphine IVPUSH 01/04/20 14:57 4 mg ONETIME ONE Administration Ondansetron HCl 4 mg 01/04/20 14:56 01/04/20 15:29 Zofran IVPUSH 01/04/20 14:57 4 mg ONETIME ONE Administration Departure - Departure Time of Disposition: 17:39 Disposition: Home, Self-Care 01 Condition: Good Clinical Impression: Muscle spasm - Discharge Information *PRESCRIPTION DRUG MONITORING PROGRAM REVIEWED*: Not Applicable *COPY OF PRESCRIPTION DRUG MONITORING REPORT IN PATIENT STEFAN: Not Applicable Instructions: Muscle Cramps and Spasms, [id number] Referrals: [facility] [Outside] Forms: ED Department Discharge Additional Instructions: Now that the Valium has improved the spasm he should gradually feel better and better over the next couple days. I encourage you to take [id number] Tylenol and/or ibuprofen do not take more than as directed on the bottle. If you have persistent symptoms after Saturday or you could call for follow-up appointment with the clinic noted in this paperwork. If your symptoms worsen suddenly or you have any other symptoms that concern you encourage you to be seen either at an urgent care or here in the ER. Sepsis Event Note (ED) - Evaluation Sepsis Screening Result: No Definite Risk - Focused Exam Vital Signs: Vital Signs Temp Pulse Resp BP Pulse Ox 01/04/20 14:54 97.3 F 97 18 115/71 96 - My Orders Last 24 Hours: My Active Orders 01/04/20 14:56 Cardiac Monitoring [RC] . DIRECTED Pulse Oximetry [RC] ASDIRECTED Sodium Chloride 0.9% [Saline Flush] 10 ml FLUSH ASDIRECTED PRN Sodium Chloride 0.9% [Saline Flush] 2.5 ml FLUSH ASDIRECTED PRN Saline Lock Insert [OM.PC] Stat 01/04/20 14:58 EKG 12 Lead [EKG Documentation Completion] [RC] STAT - Assessment/Plan Last 24 Hours: My Active Orders 01/04/20 14:56 Cardiac Monitoring [RC] . DIRECTED Pulse Oximetry [RC] ASDIRECTED Sodium Chloride 0.9% [Saline Flush] 10 ml FLUSH ASDIRECTED PRN Sodium Chloride 0.9% [Saline Flush] 2.5 ml FLUSH ASDIRECTED PRN Saline Lock Insert [OM.PC] Stat 01/04/20 14:58 EKG 12 Lead [EKG Documentation Completion] [RC] STAT Assessment:: 24-year-old male presenting with right-sided pleuritic chest pain. Physical exam seems inconsistent with primary shoulder joint pathology. He does clearly have symptoms surrounding the scapula. He denies any trauma. Spontaneous pneumothorax considered and x-rays pending. PE needs to be considered as well given the pleuritic chest pain but patient is low risk for that. D-dimer pending. Low concern for primary cardiac process ACS to assess rhythm evaluate for ischemia, single troponin as well. Pneumonia considered but felt less likely. Given severity of symptoms morphine Zofran ordered for symptom management. No concern for aortic dissection. Labs chest x-ray pending will reassess. 1631: Patient's labs are normal dimer normal EKG normal chest x-ray normal. Patient continues to have no right upper quadrant symptoms and LFTs are normal so I do not think this is referred pain related to the gallbladder. Patient's pain worsens with torsion of the spine with movement of the shoulder girdle. This point given the negative work-up I would favor musculoskeletal pathology as a source of his symptoms. Will trial a dose of Valium and reassess. 1740: Patient symptoms essentially resolved with Valium administration. Given this I do think he was suffering from thoracic strain. Patient comfortable going home he has been given a note for tomorrow. Return precaution discussed and understood.
--- NOTE | 2020-01-04 15:20 | CR ---
Chest: PA and lateral views of the chest were obtained. Comparison: Prior chest x-ray of 11/04/19. Heart size and mediastinum are normal. Lungs are clear with no acute parenchymal change. Minimal scoliosis is noted. No acute osseous finding is seen. Impression: 1. Nothing acute is appreciated on 2 view chest x-ray. Diagnostic code #2 This report was dictated in MDT
[2020-01-04] MEDS ORDERED: Ketorolac 30 MG/ML SDV IVPUSH ONE (15:51)
[2020-01-04 16:14] LABS: BLOOD UREA NITROGEN,BUN 10 mg/dL (7.0-18.0); CHLORIDE,CL 103 mmol/L (98-107); GLUCOSE RANDOM 94 mg/dL (74-106); POTASSIUM,K 3.8 mmol/L (3.5-5.1); SODIUM,NA 143 mmol/L (136-148)
== END 2020-01-04 18:06 | disposition home or self-care (01) ==
LOC: MW.ED 14:37
DX: M62.838 Other muscle spasm (principal); J45.909 Unspecified asthma, uncomplicated; E66.9 Obesity, unspecified; Z68.27 Body mass index [BMI] 27.0-27.9, adult
CPT/HCPCS: 36415; 71046; 80053; 84484; 85025; 85379; 93005; 96374; 96375; 99285; J1885; J2270; J2405; J3360; 99283